=== PATIENT | male | born 1990 | race African-American/Black ===

== ENCOUNTER 2019-01-23 13:29 | Emergency (ER) | payer OTHER ==
[~2019-01-23] VITALS: Ht 182.9 cm; Wt 77.1 kg
[~2019-01-23 13:29] MED LIST: ACET325T33 PO; BACTDS PO; CEPH-443 PO; IBUP-1542 PO
[2019-01-23 13:31] VITALS: BP 120/80; PULSE 73; RESP 18; Ht 182.9 cm; Wt 77.1 kg
[2019-01-23] MEDS ORDERED: KETOROLAC 60 MG INJ IM STA (14:50)
--- NOTE | 2019-01-23 14:54 | ERD ---
ER Documentation Chief Complaint Chief Complaint rt wrist pain while moving refrigerator last night HPI Patient is a 28 years old male with no known past medical history presenting to the clinic with right wrist pain since yesterday night. Patient reports helping his mother move a refrigerator when he slipped in the refrigerator fell onto his right wrist. Patient states that the pain is worse on the lateral side and experienced numbness yesterday which has resolved as of now. Patient states that he took ibuprofen with some solution of pain and was able to sleep without any issues. Patient states that when he woke up today, the pain did not resolve and was persistent. Patient states that he took ibuprofen again without resolution. Patient states that the pain was rated 10 out of 10 yesterday and rates it 7 out of 10 today without improvement. Patient is concerned he might of fractured bone states that he is unable to lift his arm fully due to pain on the wrist area. Patient also reports unable to use his right hand due to wrist pain. Patient denies any cold extremities or any pain at the digits. ROS All systems reviewed and are negative except as per history of present illness. Medications Home Meds Active Scripts Meloxicam* (Meloxicam*) 7.5 Mg Tablet, 7.5 MG PO DAILY, #30 TAB Prov:ELIZ MCWILLIAMS PA-C 01/23/19 Acetaminophen* (Tylenol*) 325 Mg Tablet, 2 TAB PO Q8 PRN for PAIN AND OR ELEVATED TEMP, #20 TAB Prov:MAXIMILIAN HAYWARD DO 11/26/15 Ibuprofen* (Motrin*) 600 Mg Tab, 600 MG PO Q8, #30 TAB Prov[facility] 11/26/15 Cephalexin* (Keflex*) 500 Mg Capsule, 500 MG PO QID for 10 Days, CAP Prov:MAINOR,MAXIMILIAN DO 11/26/15 Sulfamethoxazole-Trimethoprim* (Bactrim* DS) 800-160 Mg Tab, 1 TAB PO DAILY for 10 Days, TAB Prov:MAXIMILIAN HAYWARD DO 11/26/15 Allergies Allergies: Coded Allergies: No Known Allergy (Unverified , 11/26/15) PMhx/Soc Patient denies past medical history Medical and Surgical Hx: pt denies Medical Hx, pt denies Surgical Hx History of Surgery: No Anesthesia Reaction: No Hx Neurological Disorder: No Hx Respiratory Disorders: No Hx Cardiac Disorders: No Hx Psychiatric Problems: No Hx Miscellaneous Medical Probl: No Hx Alcohol Use: No Hx Substance Use: No Hx Tobacco Use: No Smoking Status: Never smoker FmHx Grandfather from mother's side from liver cancer and grandmother from pancreatic cancer. Physical Exam Vitals Vital Signs Date Temp Pulse Resp B/P (MAP) Pulse Ox O2 O2 Flow FiO2 Time Delivery Rate 01/23/19 97.5 73 18 120/80 95 13:31 (93) Physical Exam Const: No acute distress Head: Atraumatic Eyes: Normal Conjunctiva Skin: No petechiae or rashes Ext: No cyanosis, or edema Neur: Awake and alert Psych: Normal Mood and Affect Right wrist/hand Exam: Tenderness to palpation on lateral wrist to right fifth proximal digit. No signs of ecchymoses, swelling, abrasion, or gross deformity. Skin intact. Capillary refill is intact. Neurovascular system intact. Results 24 hrs Current Medications Medications Dose Sig/Maria Esther Start Time Status Last (Trade) Ordered Route PRN Stop Time Admin Dose Reason Admin Ketorolac 60 mg ONCE STAT 01/23/19 DC 01/23/19 Tromethamine IM 14:50 15:11 (Toradol) 01/23/19 14:53 Procedures/MDM Patient was evaluated for right wrist pain. Patient was given Toradol 60 mg IM with resolution of pain. Right wrist x-ray is grossly unremarkable. Patient has no signs of fracture or neurovascular damage and was informed he has simple right wrist injury that will heal over time. Patient will be discharged with meloxicam and was advised to continue using ice and a arm sling provided in the hospital. Departure Diagnosis: Primary Impression: Pain in wrist Laterality: right Qualified Codes: M25.531 - Pain in right wrist Additional Impression: Wrist injury Encounter type: initial encounter Laterality: right Qualified Codes: S69.91XA - Unspecified injury of right wrist, hand and finger(s), initial encounter Condition: Stable Additional Instructions: Patient advised to return to the ED immediately for new or worsening symptoms. Patient advised to follow up with primary care provider in the next 24-48 hours. Patient verbalized understanding and agrees with treatment plan and course of action. If patient has no primary care they may follow up with [facility] + [address] [address] or [facility] [address] [place] [address] or [facility] [address] [place] [address] ELIZ MCWILLIAMS PA-C January 23, 2019 14:54
[2019-01-23] MEDS ORDERED: MELO7.5T38 PO (15:38)
== END 2019-01-23 15:49 | disposition home or self-care (01) ==
LOC: FTE 13:29
DX: S69.91XA Unspecified injury of right wrist, hand and finger(s), initial encounter (principal); W20.8XXA Other cause of strike by thrown, projected or falling object, initial encounter; Y92.9 Unspecified place or not applicable
CPT/HCPCS: 73110; J1885; 96372